=== PATIENT | female | born 1995 | race Caucasian/White ===

== ENCOUNTER 2021-05-18 15:04 | Inpatient (IN) | payer MEDICAID, SELFPAY ==
[~2021-05-18] VITALS: Ht 152.4 cm; Wt 51.3 kg
[~2021-05-18 15:04] MED LIST: ACETAMINOPHEN 650 MG SUPP.RECT RC ONE
[2021-05-18] MEDS ORDERED: NACL 0.9% 2,000 ML IV ONE (15:30)
[2021-05-18 15:37] VITALS: BP_SYST 108
[2021-05-18] MEDS ORDERED: ACETAMINOPHEN 650 MG SUPP.RECT RC ONE (15:45)
[2021-05-18 16:05] LABS: BILIRUBIN,URINE NEGATIVE (NEGATIVE); BLOOD, URINE NEGATIVE (NEGATIVE); CLARITY/URINE CLOUDY (CLEAR); COLOR,URINE YELLOW (YELLOW); GLUCOSE,URINE NEGATIVE (NEGATIVE); KETONES,URINE NEGATIVE (NEGATIVE); LEUKOCYTE ESTERASE ,URINE NEGATIVE (NEGATIVE); NITRITE, URINE NEGATIVE (NEGATIVE); PROTEIN URINE NEGATIVE (NEGATIVE); UROBILINOGEN,URINE 0.2 (0.2-1.0)
[2021-05-18 16:31] LABS: BASOPHILS % (AUTO) 0.3 % (0.0-2.0); HEMATOCRIT 36.8 % (36-48); HEMOGLOBIN 12.2 g/dL (12.0-16.0); LYMPHOCYTES # (AUTO) 0.3 K/uL (1.0-5.5); LYMPHOCYTES % (AUTO) 2.8 % (20.5-51.5); MEAN CORPUSCULAR HEMOGLOBIN 31 pg (27-31); MEAN CORPUSCULAR HGB CONC 33 % (32-36); MEAN CORPUSCULAR VOLUME 92 fL (79.0-98.0); MONOCYTES # (AUTO) 1.4 K/uL (0.0-1.0); NEUTROPHILS # (AUTO) 9.1 K/uL (1.8-7.7); NEUTROPHILS % (AUTO) 83.9 % (40.0-70.0); PLATELET COUNT (AUTO) 163 K/uL (130-430); RED BLOOD CELL COUNT(AUTO) 3.99 MIL/uL (4.2-6.2); RED CELL DISTRIBUTION WIDTH 13.2 % (9.0-15.0); WHITE BLOOD COUNT (AUTO) 10.9 K/uL (4.8-10.8)
[2021-05-18 16:50] LABS: CALCIUM 8.3 mg/dL (8.4-11.0); CREATININE 0.46 mg/dL (0.55-1.30); POTASSIUM 3.7 mmol/L (3.5-5.1)
[2021-05-18 17:02] LABS: ALBUMIN 3.1 g/dL (3.4-4.8); TOTAL BILIRUBIN 0.2 mg/dL (0.0-1.0)
[2021-05-18] MEDS ORDERED: PIPERACILLIN/TAZO 3.375 GM in NS 50 ML IV ONE (17:30)
[2021-05-18] MEDS ORDERED: VANCOMYCIN HCL 1,000 MG in NS 250 ML IV ONE (17:30)
[2021-05-18] MEDS ORDERED: ACETAMINOPHEN 650 MG SUPP.RECT RC PRN (17:30)
[2021-05-18] MEDS ORDERED: VANCOMYCIN HCL 1000 MG/VIAL IV ONE (17:36)
[2021-05-18] MEDS ORDERED: LAMO100T2 GT (18:12)
[2021-05-18] MEDS ORDERED: OMEP-393 GT (18:12)
[2021-05-18] MEDS ORDERED: TRAZ-251 GT (18:12)
[2021-05-18] MEDS ORDERED: LEVE100S GT (18:12)
[2021-05-18] MEDS ORDERED: KLO1 GT (18:12)
[2021-05-18] MEDS ORDERED: FLUO40CA8 GT (18:12)
[2021-05-18] MEDS ORDERED: NACL 0.9% 1,000 ML IV ONE (19:30)
[2021-05-18] MEDS: CIPROFLOXACIN LACT 400 MG/D5W 200 ML IV SCH ×2 (21:00→21:12)
[2021-05-18] MEDS ORDERED: PIPERACILLIN/TAZOBACTAM 3.375 GM/VIAL (ZOSYN) IV ONE (21:01)
[2021-05-18] MEDS ORDERED: ALBUTEROL SULFATE 0.083% 2.5 MG/3 ML VIAL.NEB INH PRN (23:30)
[2021-05-19] VITALS (8 sets, daily range): BP systolic 114–133
[2021-05-19] MEDS: D5/0.45 NS 1,000 ML IV SCH ×2 (00:19→17:24)
[2021-05-19] MEDS: FAMOTIDINE PF 20 MG/2 ML VIAL IVP SCH ×2 (00:20→09:00)
[2021-05-19] MEDS ORDERED: PIPERACILLIN/TAZOBACTAM 3.375 GM/VIAL (ZOSYN) IV ONE (05:25)
[2021-05-19] MEDS: PIPERACILLIN/TAZO 3.375/DEX-IS 50 ML IV SCH ×3 (05:42→22:35)
[2021-05-19] MEDS: CIPROFLOXACIN LACT 400 MG/D5W 200 ML IV SCH (09:00)
[2021-05-19 09:09] LABS: BASOPHILS % (AUTO) 0.7 % (0.0-2.0); HEMATOCRIT 32.9 % (36-48); HEMOGLOBIN 10.9 g/dL (12.0-16.0); LYMPHOCYTES # (AUTO) 0.8 K/uL (1.0-5.5); LYMPHOCYTES % (AUTO) 13.4 % (20.5-51.5); MEAN CORPUSCULAR HEMOGLOBIN 30 pg (27-31); MEAN CORPUSCULAR HGB CONC 33 % (32-36); MEAN CORPUSCULAR VOLUME 91 fL (79.0-98.0); MONOCYTES # (AUTO) 1.2 K/uL (0.0-1.0); MONOCYTES % (AUTO) 20.3 % (1.7-9.3); NEUTROPHILS % (AUTO) 65.6 % (40.0-70.0); PLATELET COUNT (AUTO) 154 K/uL (130-430); RED CELL DISTRIBUTION WIDTH 13.1 % (9.0-15.0)
[2021-05-19 09:51] LABS: ALBUMIN 2.6 g/dL (3.4-4.8); CALCIUM 8.2 mg/dL (8.4-11.0); CREATININE 0.33 mg/dL (0.55-1.30); POTASSIUM 3.5 mmol/L (3.5-5.1); THYROID STIMULATING HORMONE 0.69 uIu/mL (0.36-3.74); TOTAL BILIRUBIN 0.1 mg/dL (0.0-1.0)
[2021-05-19] MEDS: VANCOMYCIN HCL 1,000 MG in NS 250 ML IV SCH (17:24)
[2021-05-19] MEDS: traZODone HCL 50 MG TABLET (DESYREL) GT SCH (21:39)
[2021-05-19] MEDS: LamoTRIgine 100 MG TABLET GT SCH (21:39)
[2021-05-20] VITALS (7 sets, daily range): BP systolic 103–133
[2021-05-20] MEDS: PIPERACILLIN/TAZO 3.375/DEX-IS 50 ML IV SCH ×3 (06:16→20:34)
[2021-05-20 08:45] LABS: BASOPHILS % (AUTO) 0.6 % (0.0-2.0); HEMATOCRIT 37.1 % (36-48); HEMOGLOBIN 12.3 g/dL (12.0-16.0); LYMPHOCYTES # (AUTO) 0.4 K/uL (1.0-5.5); LYMPHOCYTES % (AUTO) 5.6 % (20.5-51.5); MEAN CORPUSCULAR HEMOGLOBIN 30 pg (27-31); MEAN CORPUSCULAR HGB CONC 33 % (32-36); MEAN CORPUSCULAR VOLUME 91 fL (79.0-98.0); MONOCYTES # (AUTO) 0.9 K/uL (0.0-1.0); MONOCYTES % (AUTO) 11.8 % (1.7-9.3); NEUTROPHILS # (AUTO) 6.3 K/uL (1.8-7.7); PLATELET COUNT (AUTO) 155 K/uL (130-430); RED BLOOD CELL COUNT(AUTO) 4.07 MIL/uL (4.2-6.2); RED CELL DISTRIBUTION WIDTH 13.1 % (9.0-15.0); WHITE BLOOD COUNT (AUTO) 7.7 K/uL (4.8-10.8)
[2021-05-20] MEDS ORDERED: NON-FORMULARY MEDICATION (Omeprazole 1 CAP) GT SCH (09:00)
[2021-05-20] MEDS: LamoTRIgine 100 MG TABLET GT SCH ×2 (09:35→20:19)
[2021-05-20] MEDS: FAMOTIDINE PF 20 MG/2 ML VIAL IVP SCH (09:36)
[2021-05-20] MEDS: FLUoxetine HCL 20 MG CAPSULE (PROzac) GT SCH (09:36)
[2021-05-20 09:50] LABS: CALCIUM 8.3 mg/dL (8.4-11.0); CREATININE 0.46 mg/dL (0.55-1.30)
[2021-05-20] MEDS ORDERED: LANSOPRAZOLE 30 MG CAPSULE.DR GT ONE (11:15)
[2021-05-20] MEDS ORDERED: POTASSIUM CHLORIDE 20 MEQ/PKT PACKET PO ONE (12:00)
[2021-05-20] MEDS: D5/0.45 NS 1,000 ML IV SCH (12:39)
[2021-05-20] MEDS: LevETIRAcetam 500 MG/5 ML UDC ORAL LIQUID GT SCH (12:39)
[2021-05-20] MEDS: clonazePAM 0.5 MG TABLET GT SCH ×2 (14:01→20:19)
[2021-05-20] MEDS: VANCOMYCIN HCL 1,000 MG in NS 250 ML IV SCH (17:21)
[2021-05-20] MEDS: traZODone HCL 50 MG TABLET (DESYREL) GT SCH (17:21)
[2021-05-21 00:35] VITALS: BP_SYST 96
[2021-05-21] MEDS: D5/0.45 NS 1,000 ML IV SCH (05:52)
[2021-05-21] MEDS: PIPERACILLIN/TAZO 3.375/DEX-IS 50 ML IV SCH ×3 (05:52→21:10)
[2021-05-21 07:54] VITALS: BP_SYST 98
[2021-05-21] MEDS: LANSOPRAZOLE 30 MG CAPSULE.DR GT SCH (08:49)
[2021-05-21] MEDS: LamoTRIgine 100 MG TABLET GT SCH ×2 (08:49→20:43)
[2021-05-21] MEDS: LevETIRAcetam 500 MG/5 ML UDC ORAL LIQUID GT SCH (08:49)
[2021-05-21] MEDS: clonazePAM 0.5 MG TABLET GT SCH ×3 (08:49→20:43)
[2021-05-21] MEDS: FLUoxetine HCL 20 MG CAPSULE (PROzac) GT SCH (08:49)
[2021-05-21] MEDS: FAMOTIDINE PF 20 MG/2 ML VIAL IVP SCH (08:49)
[2021-05-21 11:25] VITALS: BP_SYST 96
[2021-05-21 12:00] VITALS: BP_SYST 110
[2021-05-21 16:00] VITALS: BP_SYST 117
[2021-05-21] MEDS: traZODone HCL 50 MG TABLET (DESYREL) GT SCH (18:12)
[2021-05-21] MEDS: VANCOMYCIN HCL 1,000 MG in NS 250 ML IV SCH (18:12)
[2021-05-21 20:35] VITALS: BP_SYST 113
[2021-05-22 00:49] VITALS: BP_SYST 113
[2021-05-22] MEDS: D5/0.45 NS 1,000 ML IV SCH ×3 (04:00→22:00)
[2021-05-22] MEDS: PIPERACILLIN/TAZO 3.375/DEX-IS 50 ML IV SCH ×2 (05:35→15:39)
[2021-05-22 08:50] LABS: BASOPHILS % (AUTO) 0.2 % (0.0-2.0); HEMATOCRIT 37.7 % (36-48); HEMOGLOBIN 12.3 g/dL (12.0-16.0); MEAN CORPUSCULAR HEMOGLOBIN 30 pg (27-31); MEAN CORPUSCULAR HGB CONC 33 % (32-36); MEAN CORPUSCULAR VOLUME 92 fL (79.0-98.0); MONOCYTES % (AUTO) 12.4 % (1.7-9.3); NEUTROPHILS # (AUTO) 6.2 K/uL (1.8-7.7); NEUTROPHILS % (AUTO) 75.4 % (40.0-70.0); PLATELET COUNT (AUTO) 114 K/uL (130-430); RED BLOOD CELL COUNT(AUTO) 4.09 MIL/uL (4.2-6.2); RED CELL DISTRIBUTION WIDTH 13.1 % (9.0-15.0); WHITE BLOOD COUNT (AUTO) 8.2 K/uL (4.8-10.8)
[2021-05-22 09:04] LABS: ALBUMIN 2.7 g/dL (3.4-4.8); CREATININE 0.58 mg/dL (0.55-1.30); PHOSPHORUS 3.2 mg/dL (2.7-4.5); POTASSIUM 4.1 mmol/L (3.5-5.1); TOTAL BILIRUBIN 0.2 mg/dL (0.0-1.0)
[2021-05-22] MEDS: FAMOTIDINE PF 20 MG/2 ML VIAL IVP SCH (10:55)
[2021-05-22] MEDS: LevETIRAcetam 500 MG/5 ML UDC ORAL LIQUID GT SCH (10:56)
[2021-05-22] MEDS: LamoTRIgine 100 MG TABLET GT SCH (10:56)
[2021-05-22] MEDS: FLUoxetine HCL 20 MG CAPSULE (PROzac) GT SCH (10:56)
[2021-05-22] MEDS: LANSOPRAZOLE 30 MG CAPSULE.DR GT SCH (10:56)
[2021-05-22] MEDS: clonazePAM 0.5 MG TABLET GT SCH ×2 (10:57→15:39)
[2021-05-22 10:58] VITALS: BP_SYST 93
[2021-05-22 11:48] VITALS: BP_SYST 95
[2021-05-22 16:38] VITALS: BP_SYST 99
[2021-05-22] MEDS: traZODone HCL 50 MG TABLET (DESYREL) GT SCH (18:15)
[2021-05-22] MEDS: VANCOMYCIN HCL 1,000 MG in NS 250 ML IV SCH (18:17)
[2021-05-23] MEDS: PIPERACILLIN/TAZO 3.375/DEX-IS 50 ML IV SCH ×5 (00:57→23:51)
[2021-05-23] MEDS: clonazePAM 0.5 MG TABLET GT SCH ×4 (01:00→21:00)
[2021-05-23] MEDS: LamoTRIgine 100 MG TABLET GT SCH ×3 (01:00→23:51)
[2021-05-23] MEDS: FAMOTIDINE PF 20 MG/2 ML VIAL IVP SCH (10:53)
[2021-05-23] MEDS: LevETIRAcetam 500 MG/5 ML UDC ORAL LIQUID GT SCH (10:53)
[2021-05-23] MEDS: LANSOPRAZOLE 30 MG CAPSULE.DR GT SCH (10:54)
[2021-05-23] MEDS: FLUoxetine HCL 20 MG CAPSULE (PROzac) GT SCH (10:54)
[2021-05-23 13:32] VITALS: BP_SYST 108
[2021-05-23 18:07] VITALS: BP_SYST 98
[2021-05-23] MEDS: VANCOMYCIN HCL 1,000 MG in NS 250 ML IV SCH (18:33)
[2021-05-23] MEDS: traZODone HCL 50 MG TABLET (DESYREL) GT SCH (18:34)
[2021-05-24 00:45] VITALS: BP_SYST 97
[2021-05-24 04:31] VITALS: BP_SYST 97
[2021-05-24] MEDS: PIPERACILLIN/TAZO 3.375/DEX-IS 50 ML IV SCH (06:36)
[2021-05-24 08:00] VITALS: BP_SYST 108
[2021-05-24] MEDS: LamoTRIgine 100 MG TABLET GT SCH ×2 (10:08→21:59)
[2021-05-24] MEDS: FAMOTIDINE PF 20 MG/2 ML VIAL IVP SCH (10:08)
[2021-05-24] MEDS: FLUoxetine HCL 20 MG CAPSULE (PROzac) GT SCH (10:09)
[2021-05-24] MEDS: LANSOPRAZOLE 30 MG CAPSULE.DR GT SCH (10:09)
[2021-05-24] MEDS: clonazePAM 0.5 MG TABLET GT SCH ×3 (10:09→21:59)
[2021-05-24] MEDS: LevETIRAcetam 500 MG/5 ML UDC ORAL LIQUID GT SCH (10:33)
[2021-05-24 12:00] VITALS: BP_SYST 105
[2021-05-24] MEDS: D5/0.45 NS 1,000 ML IV SCH (16:00)
[2021-05-24 16:46] VITALS: BP_SYST 106
[2021-05-24] MEDS: cefTRIAXone 1 GM in D5W 50 ML IV SCH (17:40)
[2021-05-24] MEDS: traZODone HCL 50 MG TABLET (DESYREL) GT SCH (17:44)
[2021-05-25 05:21] VITALS: BP_SYST 94
[2021-05-25 08:00] VITALS: BP_SYST 106
[2021-05-25] MEDS: LANSOPRAZOLE 30 MG CAPSULE.DR GT SCH (11:15)
[2021-05-25] MEDS: clonazePAM 0.5 MG TABLET GT SCH ×3 (11:15→21:05)
[2021-05-25] MEDS: FLUoxetine HCL 20 MG CAPSULE (PROzac) GT SCH (11:15)
[2021-05-25] MEDS: LamoTRIgine 100 MG TABLET GT SCH ×2 (11:15→21:05)
[2021-05-25] MEDS: FAMOTIDINE PF 20 MG/2 ML VIAL IVP SCH (11:16)
[2021-05-25] MEDS: D5/0.45 NS 1,000 ML IV SCH (11:16)
[2021-05-25] MEDS: LevETIRAcetam 500 MG/5 ML UDC ORAL LIQUID GT SCH (11:17)
[2021-05-25 12:31] VITALS: BP_SYST 107
[2021-05-25] MEDS: cefTRIAXone 1 GM in D5W 50 ML IV SCH (17:13)
[2021-05-25] MEDS: traZODone HCL 50 MG TABLET (DESYREL) GT SCH (18:02)
[2021-05-25 19:20] VITALS: BP_SYST 122
[2021-05-26 01:06] VITALS: BP_SYST 105
[2021-05-26] MEDS: D5/0.45 NS 1,000 ML IV SCH (08:18)
[2021-05-26 08:21] VITALS: BP_SYST 103
[2021-05-26] MEDS: FAMOTIDINE PF 20 MG/2 ML VIAL IVP SCH (08:33)
[2021-05-26] MEDS: LamoTRIgine 100 MG TABLET GT SCH ×2 (08:33→21:50)
[2021-05-26] MEDS: LevETIRAcetam 500 MG/5 ML UDC ORAL LIQUID GT SCH (08:33)
[2021-05-26] MEDS: clonazePAM 0.5 MG TABLET GT SCH ×3 (08:33→21:50)
[2021-05-26] MEDS: LANSOPRAZOLE 30 MG CAPSULE.DR GT SCH (08:33)
[2021-05-26] MEDS: FLUoxetine HCL 20 MG CAPSULE (PROzac) GT SCH (08:34)
[2021-05-26 11:37] VITALS: BP_SYST 110
[2021-05-26 15:20] VITALS: BP_SYST 110
[2021-05-26] MEDS: cefTRIAXone 1 GM in D5W 50 ML IV SCH (16:41)
[2021-05-26] MEDS: traZODone HCL 50 MG TABLET (DESYREL) GT SCH (18:31)
[2021-05-26 20:18] VITALS: BP_SYST 99
[2021-05-26] MEDS: ALBUTEROL SULFATE 0.083% 2.5 MG/3 ML VIAL.NEB INH SCH (21:08)
[2021-05-27] VITALS (7 sets, daily range): BP systolic 92–119
[2021-05-27] MEDS: ACETYLCYSTEINE 20% 4 ML VIAL (RT) INH SCH ×4 (00:13→22:45)
[2021-05-27] MEDS: D5/0.45 NS 1,000 ML IV SCH (04:08)
[2021-05-27] MEDS: ALBUTEROL SULFATE 0.083% 2.5 MG/3 ML VIAL.NEB INH SCH ×2 (08:00→22:45)
[2021-05-27 08:29] LABS: BASOPHILS % (AUTO) 0.3 % (0.0-2.0); EOSINOPHILS % (AUTO) 0.1 % (0.0-4.0); HEMOGLOBIN 10.5 g/dL (12.0-16.0); LYMPHOCYTES % (AUTO) 10.8 % (20.5-51.5); MEAN CORPUSCULAR HEMOGLOBIN 30 pg (27-31); MEAN CORPUSCULAR HGB CONC 33 % (32-36); MEAN CORPUSCULAR VOLUME 92 fL (79.0-98.0); MONOCYTES # (AUTO) 1.2 K/uL (0.0-1.0); MONOCYTES % (AUTO) 12.8 % (1.7-9.3); RED BLOOD CELL COUNT(AUTO) 3.48 MIL/uL (4.2-6.2); RED CELL DISTRIBUTION WIDTH 13.4 % (9.0-15.0); WHITE BLOOD COUNT (AUTO) 9.1 K/uL (4.8-10.8)
[2021-05-27 08:51] LABS: CALCIUM 7.9 mg/dL (8.4-11.0); CREATININE 0.4 mg/dL (0.55-1.30); POTASSIUM 3.8 mmol/L (3.5-5.1)
[2021-05-27] MEDS: clonazePAM 0.5 MG TABLET GT SCH ×3 (09:39→22:11)
[2021-05-27] MEDS: LamoTRIgine 100 MG TABLET GT SCH ×2 (09:39→22:10)
[2021-05-27] MEDS: LevETIRAcetam 500 MG/5 ML UDC ORAL LIQUID GT SCH (09:39)
[2021-05-27] MEDS: FLUoxetine HCL 20 MG CAPSULE (PROzac) GT SCH (09:40)
[2021-05-27] MEDS: FAMOTIDINE PF 20 MG/2 ML VIAL IVP SCH (09:40)
[2021-05-27] MEDS: LANSOPRAZOLE 30 MG CAPSULE.DR GT SCH (09:40)
[2021-05-27 12:03] LABS: PLATELET COUNT (AUTO) 150 K/uL (130-430)
[2021-05-27] MEDS: traZODone HCL 50 MG TABLET (DESYREL) GT SCH (18:21)
[2021-05-27] MEDS: cefTRIAXone 1 GM in D5W 50 ML IV SCH (18:21)
[2021-05-28] MEDS: D5/0.45 NS 1,000 ML IV SCH ×2 (00:38→22:35)
[2021-05-28 00:53] VITALS: BP_SYST 106
[2021-05-28] MEDS: ALBUTEROL SULFATE 0.083% 2.5 MG/3 ML VIAL.NEB INH SCH (07:38)
[2021-05-28] MEDS: ACETYLCYSTEINE 20% 4 ML VIAL (RT) INH SCH ×2 (07:39→16:10)
[2021-05-28 08:31] VITALS: BP_SYST 94
[2021-05-28] MEDS: FAMOTIDINE PF 20 MG/2 ML VIAL IVP SCH (10:49)
[2021-05-28] MEDS: LamoTRIgine 100 MG TABLET GT SCH ×2 (10:50→22:36)
[2021-05-28] MEDS: clonazePAM 0.5 MG TABLET GT SCH ×3 (10:51→22:36)
[2021-05-28] MEDS: FLUoxetine HCL 20 MG CAPSULE (PROzac) GT SCH (10:51)
[2021-05-28] MEDS: LANSOPRAZOLE 30 MG CAPSULE.DR GT SCH (10:51)
[2021-05-28] MEDS: LevETIRAcetam 500 MG/5 ML UDC ORAL LIQUID GT SCH (10:52)
[2021-05-28 12:43] VITALS: BP_SYST 104
[2021-05-28] MEDS: cefTRIAXone 1 GM in D5W 50 ML IV SCH (16:21)
[2021-05-28 17:23] VITALS: BP_SYST 105
[2021-05-28] MEDS: traZODone HCL 50 MG TABLET (DESYREL) GT SCH (20:11)
[2021-05-29] MEDS: ACETYLCYSTEINE 20% 4 ML VIAL (RT) INH SCH ×3 (00:43→15:00)
[2021-05-29] MEDS: ALBUTEROL SULFATE 0.083% 2.5 MG/3 ML VIAL.NEB INH SCH ×2 (00:43→08:24)
[2021-05-29 01:28] VITALS: BP_SYST 122
[2021-05-29 01:39] VITALS: BP_SYST 99
[2021-05-29 09:19] VITALS: BP_SYST 127
[2021-05-29 11:22] VITALS: BP_SYST 92
[2021-05-29] MEDS: FAMOTIDINE PF 20 MG/2 ML VIAL IVP SCH (11:24)
[2021-05-29] MEDS: LevETIRAcetam 500 MG/5 ML UDC ORAL LIQUID GT SCH (11:24)
[2021-05-29] MEDS: FLUoxetine HCL 20 MG CAPSULE (PROzac) GT SCH (11:25)
[2021-05-29] MEDS: clonazePAM 0.5 MG TABLET GT SCH ×3 (11:25→21:09)
[2021-05-29] MEDS: LANSOPRAZOLE 30 MG CAPSULE.DR GT SCH (11:25)
[2021-05-29] MEDS: LamoTRIgine 100 MG TABLET GT SCH ×2 (11:26→21:09)
[2021-05-29 15:56] VITALS: BP_SYST 101
[2021-05-29] MEDS: D5/0.45 NS 1,000 ML IV SCH (16:00)
[2021-05-29] MEDS: traZODone HCL 50 MG TABLET (DESYREL) GT SCH (18:28)
[2021-05-29] MEDS: cefTRIAXone 1 GM in D5W 50 ML IV SCH (18:32)
[2021-05-29 19:24] VITALS: BP_SYST 94
== END 2021-05-29 22:15 | disposition home health service (06) | DRG 720 ==
LOC: SED 15:04 → STU 19:57
PROVIDERS: ADMIT Internal Medicine; ATTEND Internal Medicine
PROC: 05HY33Z Insertion of Infusion Device into Upper Vein, Percutaneous Approach (ICD-10-PCS; principal; 2021-05-27)
DX: A41.9 Sepsis, unspecified organism (principal); J96.21 Acute and chronic respiratory failure with hypoxia; E43 Unspecified severe protein-calorie malnutrition; J18.9 Pneumonia, unspecified organism; G40.909 Epilepsy, unspecified, not intractable, without status epilepticus; Z20.822 Contact with and (suspected) exposure to COVID-19; I10 Essential (primary) hypertension; X58.XXXA Exposure to other specified factors, initial encounter; S06.890A Other specified intracranial injury without loss of consciousness, initial encounter; Z87.820 Personal history of traumatic brain injury; Z68.22 Body mass index [BMI] 22.0-22.9, adult; Z93.0 Tracheostomy status; Z93.1 Gastrostomy status; Y93.89 Activity, other specified; Y92.89 Other specified places as the place of occurrence of the external cause; Y99.8 Other external cause status
CPT/HCPCS: 36415; 36600; 71045; 80048; 80053; 80061; 81003; 82803-TC; 83605; 83735; 84100; 84443; 84484; 84702; 85025; 87040; 87070-TC; 94640; 94760; 96365; 96366; 96367; 99291; G0378; J0696; J0744; J2543; J3370; J3490; J7050; J7060; J7608; J7613; U0003